=== PATIENT | male | born 1945 ===

== ENCOUNTER 2024-11-20 08:16 | Outpatient (REF) | payer MEDICARE, MEDICAID, SELFPAY ==
[2024-11-20 15:01] LABS: ALT 48 U/L (16-63); AST 42 U/L (15-37); Albumin 4.1 g/dL (3.4-5.0); Alkaline Phosphatase 129 U/L (46-116); BUN 18 mg/dL (7-18); Bilirubin, Total 0.8 mg/dL (0.2-1.0); CREATININE 1.5 mg/dL (0.70-1.30); Calcium 9.3 mg/dL (8.5-10.1); Calculated LDL 64 mg/dL (<100); Chloride 108 mmol/L (98-107); Cholesterol 124 mg/dL (<200); Estimated GFR 46.77 (mL/min/1.73m2); Glucose 114 mg/dL (74-106); HDL Cholesterol 41 mg/dL (>or=40); Potassium 4.5 mmol/L (3.5-5.1); Sodium 146 mmol/L (136-145); Total Protein 8.5 g/dL (6.4-8.2); Triglyceride 95 mg/dL (<150)
[2024-11-20 15:03] LABS: Hemoglobin A1C 7.4 % (<5.7)
== END 2024-11-20 08:17 | disposition home or self-care (01) ==
LOC: NCHCN 08:16
PROVIDERS: Visit Provider Family Medicine
DX: N18.30 Chronic kidney disease, stage 3 unspecified (principal); E11.9 Type 2 diabetes mellitus without complications; E78.5 Hyperlipidemia, unspecified
CPT/HCPCS: 80053; 80061; 83036

== ENCOUNTER 2025-03-31 15:08 | Outpatient (REF) | payer MEDICARE, MEDICAID, SELFPAY ==
[2025-03-31 22:06] LABS: Anion Gap 11.8 mmol/L (3-11); BUN 36 mg/dL (7-18); CO2 23.2 mmol/L (21.0-32.0); Calcium 8.8 mg/dL (8.5-10.1); Chloride 109 mmol/L (98-107); Estimated GFR 46.77 (mL/min/1.73m2); Glucose 177 mg/dL (74-106); Potassium 3.8 mmol/L (3.5-5.1); Sodium 144 mmol/L (136-145)
[2025-04-02 10:06] LABS: Lyme Ab w Rflx to Lyme Confirm Negative (Negative)
[2025-04-04 13:43] LABS: B. miyamotoi PCR Negative (Negative); Babesia divergens/MO-1 Negative (Negative); Ehrlichia muris eauclairensis Negative (Negative)
== END 2025-03-31 15:09 | disposition home or self-care (01) ==
LOC: NCHCN 15:08
PROVIDERS: PCP Family Medicine; Visit Provider Family Medicine
DX: N18.30 Chronic kidney disease, stage 3 unspecified (principal); S30.860A Insect bite (nonvenomous) of lower back and pelvis, initial encounter; W57.XXXA Bitten or stung by nonvenomous insect and other nonvenomous arthropods, initial encounter
CPT/HCPCS: 80048; 87798; 86618